=== PATIENT | female | born 1955 ===

== ENCOUNTER 2022-03-17 19:38 | Emergency (ER) | payer BC, OTHER ==
[~2022-03-17] VITALS: Ht 167.7 cm; Wt 78.4 kg
--- NOTE | 2022-03-17 19:48 | ED General ---
General Stated Complaint: POSS MED REACTION Source of Information: Patient History of Present Illness Date Seen by Provider: Mar 17, 2022 Time Seen by Provider: 19:44 Initial Comments 67-year-old female presenting with complaints of feeling flushed and having heart palpitations after taking a Mucinex DM. She has taken the medicine before without having side effects. She has had cough and cold symptoms for over a week. She did do home COVID test that was negative. She feels like her symptoms are improving since she took Mucinex DM but was concerned that something was wrong so she came to the emergency department. She denies any rash, itching, nausea, vomiting, difficulty swallowing. Timing/Duration: 1-3 Hours Severity: Moderate Modifying Factors: worse with Medication (Taking the Mucinex DM seem to trigger her symptoms) Associated Systoms: No Chest Pain; Cough; No Diaphoresis, No Fever/Chills, No Headaches, No Loss of Appetite, No Malaise, No Nausea/Vomiting, No Rash, No Seizure, No Shortness of Air, No Syncope, No Weakness Allergies and Home Medications Allergies Coded Allergies: aspirin (Unverified Adverse Reaction, Unknown, 03/17/22) codeine (Unverified Adverse Reaction, Unknown, 03/17/22) Patient Home Medication List Home Medication List Reviewed: Yes Review of Systems Review of Systems Constitutional: No chills, No fever EENTM: nose congestion; No ear discharge, No hearing loss, No ear pain, No epistaxis Respiratory: cough; No hemoptysis, No phlegm Cardiovascular: No chest pain, No edema; palpitations Gastrointestinal: see HPI Genitourinary: No dysuria, No hematuria Musculoskeletal: no symptoms reported Skin: No rash Psychiatric/Neurological: Denies Headache, Denies Numbness, Denies Paresthesia Hematologic/Lymphatic: Denies Blood Clots Immunological/Allergic: pollen allergy (Has seasonal allergies that are flared up currently) Past Umsqihr-Abqhcl-Jhhqrt Hx Patient Social History Tobacco Use?: No Use of E-Cig and/or Vaping dev: No Substance use?: No Alcohol Use?: No Seasonal Allergies Seasonal Allergies: Yes Past Medical History Surgery/Hospitalization HX: Hypothyroid Physical Exam Vital Signs Vital Signs - First Documented 03/17/22 19:45 Temp 36.7 Pulse 90 Resp 23 B/P (MAP) 170/72 (104) Pulse Ox 96 O2 Delivery Room Air Capillary Refill : Height, Weight, BMI Height: '" Weight: lbs. oz. kg; BMI Method: General Appearance: No Apparent Distress, WD/WN HEENT: PERRL/EOMI, TMs Normal, Normal ENT Inspection, Pharynx Normal Neck: Full Range of Motion, Normal Inspection, Non Tender, Supple Respiratory: Chest Non Tender, Lungs Clear, Normal Breath Sounds, No Accessory Muscle Use, No Respiratory Distress Cardiovascular: Regular Rate, Rhythm, Normal Peripheral Pulses Gastrointestinal: No Pulsatile Mass, Non Tender, Soft Rectal: Deferred Extremity: Normal Capillary Refill, Normal Inspection, Normal Range of Motion, No Pedal Edema Neurologic/Psychiatric: Alert, Oriented x3, No Motor/Sensory Deficits, lawn caretaker II- XII Norm as Tested Skin: Normal Color, Warm/Dry Progress/Results/Core Measures Suspected Sepsis SIRS Temperature: Pulse: Respiratory Rate: Laboratory Tests 03/17/22 20:10: White Blood Count 7.4 Blood Pressure / Mean: Laboratory Tests 03/17/22 20:10: Creatinine 0.50L, Platelet Count 275, Total Bilirubin 0.3 Results/Orders Lab Results Laboratory Tests Test 03/17/22 20:10 Range/Units White Blood Count 7.4 4.3-11.0 10^3/uL Red Blood Count 4.25 3.80-5.11 10^6/uL Hemoglobin 12.4 11.5-16.0 g/dL Hematocrit 37 35-52 % Mean Corpuscular Volume 88 80-99 fL Mean Corpuscular Hemoglobin 29 25-34 pg Mean Corpuscular Hemoglobin Concent 33 32-36 g/dL Red Cell Distribution Width 14.8 H 10.0-14.5 % Platelet Count 275 130-400 10^3/uL Mean Platelet Volume 9.4 9.0-12.2 fL Immature Granulocyte % (Auto) 1 % Neutrophils (%) (Auto) 59 42-75 % Lymphocytes (%) (Auto) 26 12-44 % Monocytes (%) (Auto) 11 0-12 % Eosinophils (%) (Auto) 3 0-10 % Basophils (%) (Auto) 0 0-10 % Neutrophils # (Auto) 4.4 1.8-7.8 10^3/uL Lymphocytes # (Auto) 2.0 1.0-4.0 10^3/uL Monocytes # (Auto) 0.8 0.0-1.0 10^3/uL Eosinophils # (Auto) 0.3 0.0-0.3 10^3/uL Basophils # (Auto) 0.0 0.0-0.1 10^3/uL Immature Granulocyte # (Auto) 0.0 0.0-0.1 10^3/uL Sodium Level 137 135-145 MMOL/L Potassium Level 3.6 3.6-5.0 MMOL/L Chloride Level 97 L 98-107 MMOL/L Carbon Dioxide Level 27 21-32 MMOL/L Anion Gap 13 5-14 MMOL/L Blood Urea Nitrogen 9 7-18 MG/DL Creatinine 0.50 L 0.60-1.30 MG/DL Estimat Glomerular Filtration Rate 102 BUN/Creatinine Ratio 18 Glucose Level 197 H 70-105 MG/DL Calcium Level 9.0 8.5-10.1 MG/DL Corrected Calcium 8.7 8.5-10.1 MG/DL Magnesium Level 1.6 1.6-2.4 MG/DL Total Bilirubin 0.3 0.1-1.0 MG/DL Aspartate Amino Transf (AST/SGOT) 18 5-34 U/L Alanine Aminotransferase (ALT/SGPT) 21 0-55 U/L Alkaline Phosphatase 50 40-136 U/L Troponin I < 0.30 <0.30 NG/ML Pro-B-Type Natriuretic Peptide 11.2 <75.0 PG/ML Total Protein 7.0 6.4-8.2 GM/DL Albumin 4.4 3.2-4.5 GM/DL My Orders Orders - KAVON CLARK MD Cbc With Automated Diff (03/17/22 19:57) Magnesium (03/17/22 19:57) Ekg Tracing (03/17/22 19:57) Comprehensive Metabolic Panel (03/17/22 19:57) Monitor-Rhythm Ecg Trace Only (03/17/22 19:57) Ed Iv/Invasive Line Start (03/17/22 19:57) Troponin I Fs (03/17/22 19:57) Probnp Fs (03/17/22 19:57) Ns Iv 1000 Ml (Sodium Chloride 0.9%) (03/17/22 19:57) Vital Signs/I&O 03/17/22 19:45 Temp 36.7 Pulse 90 Resp 23 B/P (MAP) 170/72 (104) Pulse Ox 96 O2 Delivery Room Air Capillary Refill : Progress Note #1: Progress Note Patient with patient her vital signs and exam appear stable and benign. It could just be a side effect of the medicine as well as may be some dehydration. Will check basic labs and try giving some IV fluid for hydration. Ordered 1 L normal saline for hydration. Progress Note #2: Progress Note Electrocardiogram does not show any acute ectopy. Her labs appear stable without acute significant abnormality. She does have improved heart rate with treatment here in the ED. Counseled on avoiding Mucinex DM or any of the Mucinex products that have added ingredients. Consider using Coricidin products instead. Counseled on follow-up and return precautions. ECG Initial ECG Impression Date: Mar 17, 2022 Initial ECG Impression Time: 20:11 Initial ECG Rate: 85 Initial ECG Rhythm: Normal Sinus Initial ECG Comparisson: No Previous ECG Available Comment Normal sinus rhythm with a heart rate of 85 bpm. NH interval 197 ms. Borderline left axis deviation. Incomplete right bundle branch block. No acute ST elevation. QT interval 371 ms with a QTc interval 413 ms. No prior tracing available for comparison. Departure Impression Primary Impression: Heart palpitations Additional Impressions: Side effect of medication Dehydration Disposition: 01 HOME, SELF-CARE Condition: Stable Departure-Patient Inst. Decision time for Depature: 20:58 Referrals: RADHA WAITE APRN (PCP/Family) Primary Care Physician Patient Instructions: Adverse Drug Reactions, Adult ED, Palpitations ED Add. Discharge Instructions: Avoid taking Mucinex with the added ingredients as they could cause palpitations. Consider using Coricidin if you need something for cough and cold symptoms. This was recommended by university controller to help with cough and cold symptoms with minimal effect on your heart Stay well-hydrated and drink plenty of fluids and electrolyte drinks. Check back with your regular provider if having continued concerns. KAVON CLARK MD Mar 17, 2022 19:48
[2022-03-17] MEDS ORDERED: NS IV 1000 ML 1,000 ML IV STA (19:57)
[2022-03-17 20:13] LABS: BASOPHILS % (AUTO) 0 % (0-10); EOSINOPHILS # (AUTO) 0.3 10^3/uL (0.0-0.3); EOSINOPHILS % (AUTO) 3 % (0-10); HEMATOCRIT 37 % (35-52); HEMOGLOBIN 12.4 g/dL (11.5-16.0); LYMPHOCYTES % (AUTO) 26 % (12-44); MEAN CORPUSCULAR HEMOGLOBIN 29 pg (25-34); MEAN CORPUSCULAR HGB CONC 33 g/dL (32-36); MEAN CORPUSCULAR VOLUME 88 fL (80-99); MEAN PLATELET VOLUME 9.4 fL (9.0-12.2); MONOCYTES # (AUTO) 0.8 10^3/uL (0.0-1.0); MONOCYTES % (AUTO) 11 % (0-12); NEUTROPHILS # (AUTO) 4.4 10^3/uL (1.8-7.8); NEUTROPHILS % (AUTO) 59 % (42-75); PLATELET COUNT 275 10^3/uL (130-400); WHITE BLOOD COUNT 7.4 10^3/uL (4.3-11.0)
[2022-03-17 20:31] LABS: ALBUMIN 4.4 GM/DL (3.2-4.5); BILIRUBIN,TOTAL 0.3 MG/DL (0.1-1.0); CREATININE SERUM 0.5 MG/DL (0.60-1.30); MAGNESIUM 1.6 MG/DL (1.6-2.4); POTASSIUM 3.6 MMOL/L (3.6-5.0)
[2022-03-17 21:00] VITALS: BP 134/63
== END 2022-03-17 21:00 | disposition home or self-care (01) ==
LOC: ER FS 19:40
DX: R00.2 Palpitations (principal); E86.0 Dehydration; T48.4X5A Adverse effect of expectorants, initial encounter; I45.10 Unspecified right bundle-branch block
CPT/HCPCS: 36415; 80053; 83735; 83880; 84484; 85025; 93005; 93041